=== PATIENT | male | born 1970 ===

== ENCOUNTER 2018-03-22 11:32 | Outpatient (CLI) | payer OTHER ==
--- NOTE | 2018-03-22 12:39 | RAD ---
THREE VIEWS OF RIGHT HAND: INDICATION: Right hand pain. IMPRESSION: No acute fracture or subluxation is evident. Soft tissues are normal-appearing. No radiopaque forei gn body is noted. POS: [facility]
== END 2018-03-22 11:33 | disposition home or self-care (01) ==
LOC: RAD-FRANK 11:32
PROVIDERS: ATTEND Nurse Practitioner Family
DX: M79.641 Pain in right hand (principal)